=== PATIENT | female | born 1980 | race American Indian/Alaskan Native ===

== ENCOUNTER 2023-02-18 13:10 | Outpatient (CLI) | payer OTHER, BC, SELFPAY | END 2023-02-18 13:11 | disposition home or self-care (01) | LOC: NFLDREF 13:10 | PROVIDERS: Visit Provider Obstetrics & Gynecology | DX: N76.4 Abscess of vulva (principal) | CPT/HCPCS: 87070; 87075 ==

== ENCOUNTER 2023-12-15 08:27 | Outpatient (CLI) | payer OTHER, BC, SELFPAY ==
--- NOTE | 2023-12-15 08:45 | MM_ITS ---
Patient: JUANITA IBANEZ Facility:?[facility] Patient ID:?[id number] Site Patient ID:?[id number]. Site :?1980 Study:?XRay-Breast Bilateral 3D W/CAD-12/15/2023 9:13:48 AM Ordering Physician:Jeannette Final Report: DIGITAL DIAGNOSTIC BILATERAL MAMMOGRAM USING TOMOSYNTHESIS AND COMPUTER-AIDED DETECTION RIGHT BREAST ULTRASOUND CLINICAL HISTORY: RIGHT breast pain. COMPARISON: None. TECHNIQUE: Digital BILATERAL mammogram in four projections. Tomosynthesis and CAD utilized. Real-time ultrasound imaging of RIGHT breast with imaging documentation. BREAST COMPOSITION: The breasts are heterogeneously dense, which may obscure small masses. FINDINGS: 3D CC/MLO BILATERAL mammograms submitted. No suspicious mass or architectural distortion. No suspicious calcifications. No adenopathy. Targeted RIGHT breast ultrasound performed in the retroareolar region performed. Normal dense fibroglandular tissue. No fibrocystic change or mass. IMPRESSION: No suspicious findings. No evidence of malignancy. RECOMMENDATIONS: Annual BILATERAL screening mammography. Results and recommendations were discussed with the patient at the time of the exam. BI-RADS Category 2: Benign A lay language report of this examination will be provided to the patient. Dictated by Chucho Dodd MD @ 12/15/2023 12:20:39 PM /Dictated by: Chucho Dodd MD @ 12/15/2023 12:20:00 PM Signed by:?Chucho Dodd MD @12/15/2023 3:04:58 PM (Electronic Signature)
--- NOTE | 2023-12-15 09:15 | US_ITS ---
Patient: JUANITA IBANEZ Facility:?[facility] Patient ID:?[id number] Site Patient ID:?[id number]. Site :?1980 Study:?US-Breast Right Dr. Dodd to read-12/15/2023 9:15:12 AM Ordering Physician:?Maryanne Quesada Final Report: PLEASE SEE DIGITAL DIAGNOSTIC BILATERAL MAMMOGRAM PERFORMED SAME DAY CRL:kristi berry/Dictated by: Chucho Dodd MD @ 12/15/2023 12:20:00 PM Signed by:?Chucho Dodd MD @12/15/2023 3:04:59 PM (Electronic Signature)
== END 2023-12-15 08:28 | disposition home or self-care (01) ==
LOC: MAMMO 08:27
PROVIDERS: Visit Provider Registered Nurse
DX: N64.4 Mastodynia (principal); R92.2 Inconclusive mammogram
CPT/HCPCS: 76642; 77066; G0279